=== PATIENT | female | born 1975 | race Caucasian/White ===

== ENCOUNTER 2016-09-07 20:14 | Emergency (ER) | payer SELFPAY ==
[2016-09-07 20:25] VITALS: BP 151/87; PULSE 70; RESP 14; TEMP 97.9; O2SAT 97
--- NOTE | 2016-09-07 21:05 | DX ---
Right Ankle Series, 3 Views History: Pain following trauma. Findings: There is a mildly displaced fracture involving the shaft of the right fibula near the junct ion of middle and distal thirds. Additionally, there is probable small avulsion fracture of the poste rior malleolus. Clinical correlation of this region is recommended. The ankle mortise does not appear widened. A plantar calcaneal spur is noted. Bony mineralization is normal. IMPRESSION: Right fibular fracture with probable posterior malleolar fracture also noted. A preliminary report was called to [facility] [place] department.
--- NOTE | 2016-09-07 21:35 | UCPHY ---
H & P Time Seen by Provider: 09/07/16 20:32 Patient Type: New Smoking Status: Never smoked Constitutional: Initial Vital Signs Temperature (C) 36.6 C 09/07/16 20:21 Heart Rate 70 09/07/16 20:21 Respiratory Rate 14 09/07/16 20:21 Blood Pressure 151/87 H 09/07/16 20:21 O2 Sat (%) 97 09/07/16 20:21 O2 Delivery Mode Room Air Allergies/Adverse Reactions: No Known Allergies Allergy (Unverified 09/07/16 20:21) Home Medications: Medication Instructions Recorded NK [No Known Home Meds] 09/07/16 MDM/Departure - Depart Clinical Impression: Ankle fracture Qualifiers: Encounter type: initial encounter Fracture type: closed Laterality: right Qualifier Code: (S82.891A) Other fracture of right lower leg, initial encounter for closed fracture Condition: Fair Instructions: Ankle Fracture (ED), Crutch Instructions (ED) Additional Instructions: Diagnosis: Ankle fracture Plan: Elevate the ankle whenever possible Splint at all times Ibuprofen for pain as needed 600 mg per 6 hours Tylenol or Vicodin in addition if needed. No driving, alcohol or work on Vicodin. Call Dr. Skyler Hahn on Saturday to arrange follow-up appointment for this week. Crutches whenever up and about. No weight-bearing. Go to the emergency department if he have any unbearable pain despite treatment plan Stand Alone Forms: Work Excuse Referrals: NONE *PRIMARY CARE P,. [Primary Care Provider] - As per Instructions Mikey Brown MD [Medical Doctor] - As per Instructions - PQRS PQRS Measurement: NA
[2016-09-07] MEDS ORDERED: HYDROCOD/APAP 5/325 PREPACK#6 BTL TAKEHOME ONE (21:36)
[2016-09-07] MEDS ORDERED: IBUPROFEN 200 MG TAB PO ONE (21:37)
== END 2016-09-07 22:51 | disposition home or self-care (01) ==
LOC: CED 20:14
DX: S82.891A Other fracture of right lower leg, initial encounter for closed fracture (principal); W01.0XXA Fall on same level from slipping, tripping and stumbling without subsequent striking against object, initial encounter
CPT/HCPCS: 73610-PO; G0463-PO

== ENCOUNTER 2016-09-25 22:05 | Emergency (ER) | payer SELFPAY ==
[2016-09-25 22:41] VITALS: BP 130/97; PULSE 88; RESP 18; TEMP 98.4; O2SAT 94
--- NOTE | 2016-09-25 22:42 | UCPHY ---
[id number] Chief complaint: Rash HPI: 41-year-old female recently diagnosed with a PE status post ankle fracture. Patient was discharged yesterday from the hospital. She has been taking Lovenox and Coumadin for the past 3 days. Patient started having some itching in her back yesterday which has progressed today. It is mildly worse today. She has called and spoke with her doctor who told her present for evaluation for possible allergic reaction. Patient states that she has has or wrist itchy rash on her back. It is not on her extremities chest or abdomen. Has had no difficulty breathing, sensation of swelling in her throat, shortness of breath other than that from her PE. No fevers or chills. No nausea or vomiting. The patient says state that she was laying in the hospital bed for a week and did have a lot of sweating on her back and thought that the symptoms were possibly due to he rash. ROS: 10 point Review of Systems is negative except as noted in the HPI. Physical exam: Gen: Awake, Alert, No Distress HEENT: Nose: no rhinorrhea Eyes: PERRLA, EOMI Mouth: Moist mucosa Neck: Supple, no JVD Chest: nontender, lungs clear to auscultation Heart: S1, S2 normal, no murmur Abd: Soft, non-tender, no guarding Back: no CVA tenderness, no midline tenderness Ext: no edema, non-tender, right ankle is in a splint Skin: She has a maculopapular rash over her back which could possibly be a drug reaction although looks more like a heat rash. There is none on her chest. There is none on her abdomen where she has been injecting Lovenox. There is no localized reaction to where she has been injecting Lovenox. Neuro: CN II-XII intact, Sensation grossly intact, Strength 5/5 in bilateral upper and lower extremities - Medical/Surgical History Hx Asthma: No Hx Chronic Respiratory Disease: No Hx Diabetes: No Hx Cardiac Disease: No Hx Renal Disease: No Hx Cirrhosis: No Hx Alcoholism: No Hx HIV/AIDS: No Hx Splenectomy or Spleen Trauma: No Other PMH: none - Family History Significant Family History: No pertinent family hx - Social History Smoking Status: Never smoked Constitutional: Initial Vital Signs Temperature (C) 36.9 C 09/25/16 22:31 Heart Rate 88 09/25/16 22:31 Respiratory Rate 18 09/25/16 22:31 Blood Pressure 130/97 H 09/25/16 22:31 O2 Sat (%) 94 09/25/16 22:31 O2 Delivery Mode Room Air Allergies/Adverse Reactions: micah Allergy (Verified 09/25/16 22:45) Home Medications: Medication Instructions Recorded Coumadin 09/25/16 Lovenox 120 MG (*) 09/25/16 Medical Decision Making ED Course/Re-evaluation: 41-year-old woman presenting with a rash on her back. She is taking Lovenox and Coumadin. There is no ecchymosis. There is no blistering or skin sloughing. There are mild petechiae. The rash is isolated to her back. There are no lesions around her Lovenox injections sites. I think it highly unlikely this is a reaction to the Lovenox. She has not had any shortness of breath or symptoms suggestive of an anaphylactic type of reaction. She is not taking any medications. I am going to administer her evening dose of Lovenox. Will give her Benadryl. She has an appointment with her doctor tomorrow. She knows that if her symptoms worsen at all she will go immediately to the nearest emergency department. She has already taken her Coumadin today and is not due to take until 4 o'clock tomorrow afternoon. She will follow up with her doctor as scheduled and return for any worsening. She has been given Benadryl here. She has not taken any since the onset of her symptoms. - Data Points Medications Given: Discontinued Medications Diphenhydramine HCl (Benadryl) 50 mg PO EDNOW ONE Stop: 09/25/16 23:07 Last Admin: 09/25/16 23:00 Dose: 50 mg Departure - Departure Disposition: Home, Routine, Self-Care Clinical Impression: Rash Condition: Good Instructions: Acute Rash (ED) Additional Instructions: If he should develop worsening itching, difficulty breathing, swelling, or any other concerns call 911 and go immediately to the nearest emergency department. Follow up with your doctor tomorrow as scheduled. Referrals: PAT BURGOS [Primary Care Provider] - As per Instructions - PQRS PQRS Measurement: GEORGE
[2016-09-25] MEDS ORDERED: diphenhydrAMINE 50 MG CAP PO ONE (22:48)
[2016-09-25] MEDS ORDERED: diphenhydrAMINE 25 MG CAP PO ONE (23:06)
== END 2016-09-25 23:20 | disposition home or self-care (01) ==
LOC: CED 22:05
DX: R21 Rash and other nonspecific skin eruption (principal); I26.99 Other pulmonary embolism without acute cor pulmonale
CPT/HCPCS: 99214-PO; G0463-PO